=== PATIENT | female | born 1935 | race Caucasian/White ===

== ENCOUNTER 2017-11-18 03:37 | Emergency (ER) | payer MEDICARE, OTHER ==
[~2017-11-18] VITALS: Ht 149.9 cm; Wt 64.4 kg
[2017-11-18 04:58] LABS: Basophils # (auto) 0 uL; Basophils % (auto) 0.1 % (0.0-2.0); Eosinophils # (auto) 0.1 uL; Eosinophils % (auto) 0.8 % (0.0-7.0); Hematocrit 45.1 % (36.0-46.0); Hemoglobin 15.1 g/dL (12.2-16.2); Lymphocytes % (auto) 12.6 % (10.0-50.0); Mean Corpuscular Hemoglobin 29.3 pg (28.0-32.0); Mean Corpuscular Hgb Conc. 33.4 g/dL (32.0-36.0); Mean Corpuscular Volume 87.6 fL (80.0-100.0); Monocytes # (auto) 0.8 uL; Monocytes % (auto) 9.5 % (0.0-12.0); Neutrophils # (auto) 6.3 uL; Nucleated Red Blood Cells % 0.2 %; Platelet Count (auto) 274 10^3/uL (140-450); Red Blood Cells 5.15 10^6/uL (4.0-5.20); Red Cell Distribution Width 14.3 % (11.8-14.3); White Blood Cell 8.2 10^3/uL (4.4-10.8)
[2017-11-18 05:15] LABS: Albumin 3.5 g/dL (3.4-5.0); Calcium 8.4 mg/dL (8.5-10.1); Potassium 3.6 mmol/L (3.5-5.1)
[2017-11-18 05:18] LABS: BUN/Creatinine Ratio 26.1
[2017-11-18 05:21] LABS: Bilirubin, Total 0.5 mg/dL (0.2-1.0); Total Protein 6.7 g/dL (6.4-8.2)
[2017-11-18] MEDS ORDERED: ONDANSETRON HCL 4 MG/2 ML VIAL IV ONE (05:30)
[2017-11-18] MEDS ORDERED: SODIUM CHLORIDE 0.9% 1,000 ML IV ONE (05:30)
[2017-11-18] MEDS ORDERED: LORazepam 2MG/ML-1ML VIAL IV ONE (05:30)
[2017-11-18] MEDS ORDERED: LACTULOSE 20Gm/30ML SOLN PO ONE (05:30)
[2017-11-18 09:35] VITALS: BP 127/99
== END 2017-11-18 09:49 ==
LOC: EDBD 03:37 → ER 03:40
DX: K59.00 Constipation, unspecified (principal); I60.9 Nontraumatic subarachnoid hemorrhage, unspecified; I48.91 Unspecified atrial fibrillation; J44.9 Chronic obstructive pulmonary disease, unspecified; I10 Essential (primary) hypertension; R51 Headache; Z88.0 Allergy status to penicillin
CPT/HCPCS: 36415; 70450; 71045; 72070; 72100; 74176; 80053; 85025; 96361; 96374; 96375; 99291; J2060; J2405; J7030

== ENCOUNTER 2017-11-28 22:07 | Inpatient (IN) | payer OTHER ==
[~2017-11-28] VITALS: Ht 149.9 cm; Wt 69.2 kg
[2017-11-28 23:16] LABS: Basophils # (auto) 0 uL; Basophils % (auto) 0.5 % (0.0-2.0); Eosinophils # (auto) 0.1 uL; Eosinophils % (auto) 1.7 % (0.0-7.0); Hemoglobin 12.8 g/dL (12.2-16.2); Lymphocytes % (auto) 15.4 % (10.0-50.0); Mean Corpuscular Hemoglobin 28.4 pg (28.0-32.0); Mean Corpuscular Hgb Conc. 31.9 g/dL (32.0-36.0); Mean Corpuscular Volume 89.2 fL (80.0-100.0); Monocytes # (auto) 0.7 uL; Monocytes % (auto) 11.3 % (0.0-12.0); Neutrophils # (auto) 4.4 uL; Neutrophils % (auto) 71.1 % (37.0-80.0); Nucleated Red Blood Cells % 0.1 %; Platelet Count (auto) 144 10^3/uL (140-450); Red Blood Cells 4.49 10^6/uL (4.0-5.20); Red Cell Distribution Width 14.7 % (11.8-14.3); White Blood Cell 6.3 10^3/uL (4.4-10.8)
[2017-11-28 23:29] LABS: INR 1.01 (0.9-1.15); Partial Thromboplastin Time 26.6 sec (22.64-33.71)
[2017-11-28 23:35] LABS: Albumin 2.9 g/dL (3.4-5.0); BUN/Creatinine Ratio 22.9; Calcium 8.5 mg/dL (8.5-10.1); Potassium 3.9 mmol/L (3.5-5.1)
[2017-11-28 23:51] LABS: Bilirubin, Total 0.4 mg/dL (0.2-1.0)
[2017-11-29 04:26] LABS: Urine Bacteria FEW /hpf (None Seen); Urine Blood 1+ /uL (Negative); Urine Specific Gravity 1.007 (1.001-1.035); Urine WBC <1 /hpf (0 - 5)
[2017-11-29] MEDS ORDERED: ALBUTEROL SULF 2.5 MG/0.5ML(0.5%) NEB SOLN NEB ONE (08:15)
[2017-11-29] MEDS ORDERED: IPRATROPIUM BROM 0.5 MG/2.5ML INH SOL NEB ONE (08:15)
[2017-11-29] MEDS ORDERED: MORPHINE SULFATE 4 MG/ML SYR/VIAL IV PRN (10:30)
[2017-11-29] MEDS ORDERED: NITROGLYCERIN 0.4 MG SL TAB SL PRN (10:30)
[2017-11-29] MEDS ORDERED: ONDANSETRON HCL 4 MG/2 ML VIAL IV PRN (10:45)
[2017-11-29] MEDS ORDERED: MORPHINE SULF INJ 2 MG/ML SYRINGE 1ML IV PRN (10:45)
[2017-11-29] MEDS ORDERED: PANTOPRAZOLE 40 MG/10 ML VIAL IV ONE (10:45)
[2017-11-29] MEDS ORDERED: CIPROFLOXACIN 400MG/200ML 200 ML IV ONE (10:45)
[2017-11-29] MEDS: SOD CHL 0.45% 1,000 ML IV SCH (11:09)
[2017-11-29] MEDS ORDERED: GOLYTELY 4L KIT PO ONE (15:45)
[2017-11-29] MEDS ORDERED: TIOTCAP IN (17:29)
[2017-11-29] MEDS ORDERED: FLUT500M2 INH (17:29)
[2017-11-29] MEDS ORDERED: ALBUAER3 IN (17:29)
[2017-11-29] MEDS ORDERED: LISI2.5T47 PO (17:29)
[2017-11-29] MEDS ORDERED: CHOL20007 PO (17:29)
[2017-11-29] MEDS ORDERED: CARV12.544 PO (17:29)
[2017-11-29] MEDS ORDERED: BENZ100C97 PO (17:29)
[2017-11-29] MEDS ORDERED: SENN1TAB14 PO (17:29)
[2017-11-29] MEDS ORDERED: MELA3TAB27 PO (17:29)
[2017-11-29] MEDS ORDERED: SIMV-8 PO (17:29)
[2017-11-29] MEDS ORDERED: PANT40TA2 PO (17:29)
[2017-11-29] MEDS ORDERED: DOCU1CAP31 PO (17:29)
[2017-11-29 21:39] VITALS: BP 128/78
[2017-11-29] MEDS: PANTOPRAZOLE 40 MG/10 ML VIAL IV SCH (22:17)
[2017-11-29] MEDS: CIPROFLOXACIN 400MG/200ML 200 ML IV SCH (22:18)
[2017-11-30] VITALS (7 sets, daily range): BP systolic 117–123; BP diastolic 56–76
[2017-11-30] MEDS: SOD CHL 0.45% 1,000 ML IV SCH ×2 (00:05→09:07)
[2017-11-30 07:03] LABS: Basophils # (auto) 0 uL; Basophils % (auto) 0.6 % (0.0-2.0); Eosinophils # (auto) 0.1 uL; Eosinophils % (auto) 1.6 % (0.0-7.0); Hematocrit 40.4 % (36.0-46.0); Hemoglobin 13.2 g/dL (12.2-16.2); Lymphocytes # (auto) 0.8 uL; Lymphocytes % (auto) 13.1 % (10.0-50.0); Mean Corpuscular Hgb Conc. 32.7 g/dL (32.0-36.0); Mean Corpuscular Volume 88.6 fL (80.0-100.0); Monocytes # (auto) 0.8 uL; Monocytes % (auto) 13.3 % (0.0-12.0); Neutrophils # (auto) 4.1 uL; Neutrophils % (auto) 71.4 % (37.0-80.0); Nucleated Red Blood Cells % 0.1 %; Platelet Count (auto) 147 10^3/uL (140-450); Red Blood Cells 4.56 10^6/uL (4.0-5.20); Red Cell Distribution Width 14.6 % (11.8-14.3); White Blood Cell 5.7 10^3/uL (4.4-10.8)
[2017-11-30 07:28] LABS: Albumin 2.9 g/dL (3.4-5.0); Bilirubin, Total 0.6 mg/dL (0.2-1.0); Calcium 7.9 mg/dL (8.5-10.1); Total Protein 6.2 g/dL (6.4-8.2)
[2017-11-30] MEDS ORDERED: MIDAZOLAM HCL 5 MG/ML-1ML VIAL ONE (08:26)
[2017-11-30] MEDS ORDERED: diphenhdrAMINE HCL 50 MG/1 ML VL ONE (08:27)
[2017-11-30] MEDS ORDERED: fentaNYL CITRATE 100 MCG/2 ML VL ONE (08:27)
[2017-11-30] MEDS: PANTOPRAZOLE 40 MG/10 ML VIAL IV SCH ×2 (09:06→22:37)
[2017-11-30] MEDS: CIPROFLOXACIN 400MG/200ML 200 ML IV SCH ×2 (09:07→22:37)
[2017-11-30] MEDS ORDERED: CARVEDILOL 3.125 MG TAB PO ONE (15:15)
[2017-11-30] MEDS ORDERED: FUROSEMIDE 20 MG/2 ML VIAL IV ONE (15:15)
[2017-11-30] MEDS: CARVEDILOL 3.125 MG TAB PO SCH (22:38)
[2017-12-01] MEDS: SOD CHL 0.45% 1,000 ML IV SCH (02:45)
[2017-12-01 05:00] VITALS: BP 120/80
[2017-12-01 06:15] LABS: Basophils # (auto) 0 uL; Basophils % (auto) 0.2 % (0.0-2.0); Eosinophils # (auto) 0.1 uL; Eosinophils % (auto) 2.1 % (0.0-7.0); Hematocrit 39.1 % (36.0-46.0); Hemoglobin 12.7 g/dL (12.2-16.2); Lymphocytes # (auto) 0.6 uL; Lymphocytes % (auto) 10.6 % (10.0-50.0); Mean Corpuscular Hemoglobin 28.8 pg (28.0-32.0); Mean Corpuscular Hgb Conc. 32.6 g/dL (32.0-36.0); Mean Corpuscular Volume 88.3 fL (80.0-100.0); Monocytes # (auto) 0.7 uL; Monocytes % (auto) 12.6 % (0.0-12.0); Neutrophils # (auto) 4.2 uL; Neutrophils % (auto) 74.5 % (37.0-80.0); Nucleated Red Blood Cells % 0.1 %; Platelet Count (auto) 134 10^3/uL (140-450); Red Blood Cells 4.42 10^6/uL (4.0-5.20); Red Cell Distribution Width 14.5 % (11.8-14.3); White Blood Cell 5.6 10^3/uL (4.4-10.8)
[2017-12-01 06:55] LABS: Albumin 2.7 g/dL (3.4-5.0); BUN/Creatinine Ratio 14.8; Bilirubin, Total 0.4 mg/dL (0.2-1.0); Calcium 7.8 mg/dL (8.5-10.1); Potassium 4.2 mmol/L (3.5-5.1); Total Protein 5.9 g/dL (6.4-8.2)
[2017-12-01 08:00] VITALS: BP 124/69
[2017-12-01] MEDS: CARVEDILOL 3.125 MG TAB PO SCH (08:57)
[2017-12-01 09:00] VITALS: BP 124/69
[2017-12-01] MEDS: CIPROFLOXACIN 400MG/200ML 200 ML IV SCH (09:42)
[2017-12-01] MEDS: PANTOPRAZOLE 40 MG/10 ML VIAL IV SCH (09:45)
[2017-12-01] MEDS ORDERED: DIGOXIN 0.125 MG TAB PO SCH (10:00)
[2017-12-01] MEDS ORDERED: FUROSEMIDE 20 MG/2 ML VIAL IV SCH (10:00)
[2017-12-01] MEDS ORDERED: SALINE 0.65 % NASAL SPRAY 45ML BOTTLE EACHNOSTRI SCH (12:00)
[2017-12-01 12:14] VITALS: BP 124/69
[2017-12-01 13:00] VITALS: BP_SYST 107; BP_SYST 134; BP_DIAS 68; BP_DIAS 72
[2017-12-01 15:10] VITALS: BP 107/68
[2017-12-01] MEDS ORDERED: CARVEDILOL 3.125 MG TAB PO SCH (22:00)
== END 2017-12-01 15:10 | disposition home or self-care (01) | DRG 280 ==
LOC: EDBD 22:07 → ER 22:09 → TELE 22:10 → TELE-EAST 11-29 15:44
PROVIDERS: ADMIT Internal Medicine; ATTEND Internal Medicine
PROC: 0DJD8ZZ Inspection of Lower Intestinal Tract, Via Natural or Artificial Opening Endoscopic (ICD-10-PCS; principal; 2017-11-30 12:39)
DX: I21.4 Non-ST elevation (NSTEMI) myocardial infarction (principal); I60.9 Nontraumatic subarachnoid hemorrhage, unspecified; I50.43 Acute on chronic combined systolic (congestive) and diastolic (congestive) heart failure; I27.20 Pulmonary hypertension, unspecified; E66.01 Morbid (severe) obesity due to excess calories; I08.1 Rheumatic disorders of both mitral and tricuspid valves; N39.0 Urinary tract infection, site not specified; K62.5 Hemorrhage of anus and rectum; K64.4 Residual hemorrhoidal skin tags; J44.9 Chronic obstructive pulmonary disease, unspecified; I48.91 Unspecified atrial fibrillation; E78.5 Hyperlipidemia, unspecified; F17.200 Nicotine dependence, unspecified, uncomplicated; K57.30 Diverticulosis of large intestine without perforation or abscess without bleeding; I11.0 Hypertensive heart disease with heart failure; I25.10 Atherosclerotic heart disease of native coronary artery without angina pectoris; Z79.51 Long term (current) use of inhaled steroids; Z86.73 Personal history of transient ischemic attack (TIA), and cerebral infarction without residual deficits; Z68.30 Body mass index [BMI] 30.0-30.9, adult
CPT/HCPCS: 36415; 45378; 70450; 71045; 74176; 80053; 81001; 82270; 83880; 84484; 85025; 85610; 85730; 87081; 93005; 93306; 94640; 96374; 96375; C9113; J2250; J2405

== ENCOUNTER 2017-12-27 18:52 | Observation (INO) | payer OTHER ==
[~2017-12-27] VITALS: Ht 154.9 cm; Wt 65.8 kg
[~2017-12-27 18:52] MED LIST: ALBUAER3 IN; BENZ100C97 PO; CARV12.544 PO; CHOL20007 PO; DOCU1CAP31 PO; FLUT500M2 INH; MELA3TAB27 PO; PANT40TA2 PO; SENN1TAB14 PO; SIMV-8 PO; TIOTCAP IN
[2017-12-27 20:24] LABS: Basophils # (auto) 0 uL; Basophils % (auto) 0.4 % (0.0-2.0); Eosinophils # (auto) 0.3 uL; Eosinophils % (auto) 3.9 % (0.0-7.0); Hematocrit 39.1 % (36.0-46.0); Hemoglobin 12.9 g/dL (12.2-16.2); Lymphocytes % (auto) 12.7 % (10.0-50.0); Mean Corpuscular Hemoglobin 28.6 pg (28.0-32.0); Mean Corpuscular Hgb Conc. 32.9 g/dL (32.0-36.0); Mean Corpuscular Volume 87.1 fL (80.0-100.0); Monocytes # (auto) 0.8 uL; Monocytes % (auto) 9.7 % (0.0-12.0); Neutrophils # (auto) 5.7 uL; Neutrophils % (auto) 73.3 % (37.0-80.0); Nucleated Red Blood Cells % 0.1 %; Platelet Count (auto) 158 10^3/uL (140-450); Red Blood Cells 4.49 10^6/uL (4.0-5.20); White Blood Cell 7.8 10^3/uL (4.4-10.8)
[2017-12-27] MEDS ORDERED: MORPHINE SULFATE 8mg/ml INJ SDV IV ONE (20:30)
[2017-12-27] MEDS ORDERED: ASPirin 81 mg TAB PO ONE (20:30)
[2017-12-27] MEDS ORDERED: ONDANSETRON HCL 4 MG/2 ML VIAL IV ONE (20:30)
[2017-12-27 20:43] LABS: Anion Gap 6 (5-15); Blood Urea Nitrogen 15 mg/dL (7-18); Carbon Dioxide 32 mmol/L (21-32); Chloride 102 mmol/L (98-107); Glucose 93 mg/dL (74-106); Potassium 3.6 mmol/L (3.5-5.1); Sodium 140 mmol/L (136-145)
[2017-12-27 20:44] LABS: Alanine Aminotransferase 21 U/L (13-56); Albumin 3.5 g/dL (3.4-5.0); Alkaline Phosphatase 100 U/L (45-117); Aspartate Aminotransferase 15 U/L (15-37); Bilirubin, Total 0.5 mg/dL (0.2-1.0); Calcium 8.7 mg/dL (8.5-10.1); GFR African American 95 mL/min; GFR Non-African American 79 mL/min; Magnesium 2.6 mg/dL (1.6-2.6); Total Protein 7.2 g/dL (6.4-8.2)
[2017-12-27 20:47] LABS: INR 1.04 (0.9-1.15); Partial Thromboplastin Time 27.5 sec (22.64-33.71); Prothrombin Time 11.3 sec (9.37-12.3)
[2017-12-27] MEDS ORDERED: IOHEXOL 350 MG/ML 100ML IJ ONE (21:57)
[2017-12-27 23:29] VITALS: BP 105/53
== END 2017-12-27 23:07 | disposition home or self-care (01) | DRG 179 ==
LOC: EDBD 18:52 → ER 18:54 → OVERFLOW 19:50 → ER 23:07
PROVIDERS: ADMIT Emergency Medicine; ATTEND Emergency Medicine
DX: J86.9 Pyothorax without fistula (principal); I11.0 Hypertensive heart disease with heart failure; I48.91 Unspecified atrial fibrillation; I50.9 Heart failure, unspecified; R07.89 Other chest pain; I25.10 Atherosclerotic heart disease of native coronary artery without angina pectoris; J44.9 Chronic obstructive pulmonary disease, unspecified; E78.5 Hyperlipidemia, unspecified; F17.210 Nicotine dependence, cigarettes, uncomplicated; Z99.81 Dependence on supplemental oxygen
CPT/HCPCS: 36415; 71045; 71275; 80053; 83735; 83880; 84484; 85025; 85379; 85610; 85730; 96374; 96375; 99285; G0378; J2270; J2405; Q9967; 93005

== ENCOUNTER 2017-12-28 15:41 | Emergency (ER) | payer OTHER ==
[~2017-12-28] VITALS: Ht 157.5 cm; Wt 54.4 kg
[2017-12-28 18:12] VITALS: BP 119/68
== END 2017-12-28 18:49 | disposition home or self-care (01) ==
LOC: ER 15:41 → EDBD 15:41 → ER 18:49
DX: R06.02 Shortness of breath (principal); I11.0 Hypertensive heart disease with heart failure; I50.9 Heart failure, unspecified; I48.91 Unspecified atrial fibrillation; J44.9 Chronic obstructive pulmonary disease, unspecified; E78.5 Hyperlipidemia, unspecified; Z87.891 Personal history of nicotine dependence; Z99.81 Dependence on supplemental oxygen
CPT/HCPCS: 71045; 93005

== ENCOUNTER 2017-12-29 21:00 | Emergency (ER) | payer OTHER ==
[~2017-12-29] VITALS: Ht 165.1 cm; Wt 65.8 kg
[2017-12-29 22:24] LABS: Basophils # (auto) 0 uL; Basophils % (auto) 0.4 % (0.0-2.0); Eosinophils # (auto) 0.3 uL; Eosinophils % (auto) 3.4 % (0.0-7.0); Lymphocytes # (auto) 1.2 uL; Lymphocytes % (auto) 15.4 % (10.0-50.0); Mean Corpuscular Hemoglobin 28.3 pg (28.0-32.0); Mean Corpuscular Hgb Conc. 32.4 g/dL (32.0-36.0); Mean Corpuscular Volume 87.4 fL (80.0-100.0); Monocytes % (auto) 12.2 % (0.0-12.0); Neutrophils # (auto) 5.5 uL; Neutrophils % (auto) 68.6 % (37.0-80.0); Nucleated Red Blood Cells % 0.1 %; Platelet Count (auto) 151 10^3/uL (140-450); Red Blood Cells 4.23 10^6/uL (4.0-5.20); Red Cell Distribution Width 15.4 % (11.8-14.3); White Blood Cell 8.1 10^3/uL (4.4-10.8)
[2017-12-29 22:48] LABS: Alanine Aminotransferase 22 U/L (13-56); Albumin 3.2 g/dL (3.4-5.0); Alkaline Phosphatase 90 U/L (45-117); Anion Gap 6 (5-15); Aspartate Aminotransferase 16 U/L (15-37); Bilirubin, Total 0.5 mg/dL (0.2-1.0); Blood Urea Nitrogen 16 mg/dL (7-18); Calcium 8.5 mg/dL (8.5-10.1); Carbon Dioxide 32 mmol/L (21-32); Chloride 103 mmol/L (98-107); GFR African American 84 mL/min; GFR Non-African American 69 mL/min; Glucose 84 mg/dL (74-106); Magnesium 2.5 mg/dL (1.6-2.6); Potassium 3.7 mmol/L (3.5-5.1); Sodium 141 mmol/L (136-145); Total Protein 6.9 g/dL (6.4-8.2)
[2017-12-29 23:23] LABS: Urine Amorphous Crystal FEW /hpf (None Seen); Urine Bacteria FEW /hpf (None Seen); Urine Blood 1+ /uL (Negative); Urine Hyaline Cast MOD /lpf (0 - 2); Urine Mucus FEW (None Seen); Urine Specific Gravity 1.015 (1.001-1.035); Urine WBC 996 /hpf (0 - 5); Urine WBC Clumps PRESENT /hpf (None Seen)
[2017-12-30] MEDS ORDERED: methylPREDNISolone SOD SUCC 125 MG/2 ML VL IV ONE
[2017-12-30 03:50] VITALS: BP 126/46
== END 2017-12-30 03:30 | disposition home or self-care (01) ==
LOC: ER 21:00 → EDBD 21:00 → ER 12-30 03:30
DX: J45.901 Unspecified asthma with (acute) exacerbation (principal); N39.0 Urinary tract infection, site not specified; I11.0 Hypertensive heart disease with heart failure; I50.9 Heart failure, unspecified; I48.91 Unspecified atrial fibrillation; E78.00 Pure hypercholesterolemia, unspecified; Z87.891 Personal history of nicotine dependence
CPT/HCPCS: 36415; 71045; 80053; 81001; 83735; 83880; 84484; 85025; 93005; 96374

== ENCOUNTER 2018-02-01 21:10 | Emergency (ER) | payer OTHER ==
[~2018-02-01] VITALS: Ht 157.5 cm; Wt 49.9 kg
[2018-02-01 22:02] LABS: Basophils # (auto) 0 uL; Basophils % (auto) 0.3 % (0.0-2.0); Eosinophils # (auto) 0.2 uL; Eosinophils % (auto) 1.6 % (0.0-7.0); Hematocrit 39.7 % (36.0-46.0); Hemoglobin 13.1 g/dL (12.2-16.2); Lymphocytes # (auto) 1.3 uL; Lymphocytes % (auto) 12.4 % (10.0-50.0); Mean Corpuscular Hemoglobin 28.4 pg (28.0-32.0); Monocytes # (auto) 0.9 uL; Monocytes % (auto) 8.9 % (0.0-12.0); Neutrophils # (auto) 7.9 uL; Neutrophils % (auto) 76.8 % (37.0-80.0); Nucleated Red Blood Cells % 0.1 %; Platelet Count (auto) 178 10^3/uL (140-450); Red Blood Cells 4.62 10^6/uL (4.0-5.20); Red Cell Distribution Width 16.1 % (11.8-14.3); White Blood Cell 10.3 10^3/uL (4.4-10.8)
[2018-02-01 22:21] LABS: Alanine Aminotransferase 22 U/L (13-56); Albumin 3.1 g/dL (3.4-5.0); Amylase 39 U/L (25-115); Anion Gap 10 (5-15); Aspartate Aminotransferase 11 U/L (15-37); BUN/Creatinine Ratio 42.1; Blood Urea Nitrogen 32 mg/dL (7-18); Carbon Dioxide 31 mmol/L (21-32); Chloride 100 mmol/L (98-107); GFR African American 94 mL/min; GFR Non-African American 78 mL/min; Glucose 105 mg/dL (74-106); Lipase 124 U/L (73-393); Magnesium 2.1 mg/dL (1.6-2.6); Potassium 3.8 mmol/L (3.5-5.1); Sodium 141 mmol/L (136-145)
[2018-02-01 22:26] LABS: Alkaline Phosphatase 91 U/L (45-117); Bilirubin, Total 0.5 mg/dL (0.2-1.0); Total Protein 7.3 g/dL (6.4-8.2)
[2018-02-01 22:53] LABS: Urine Bacteria NONE SEEN /hpf (None Seen); Urine Blood Negative /uL (Negative); Urine Specific Gravity 1.009 (1.001-1.035); Urine WBC 1 /hpf (0 - 5)
[2018-02-02] MEDS ORDERED: SODIUM CHLORIDE 0.9% 1,000 ML IV ONE (01:15)
[2018-02-02 05:36] VITALS: BP 114/88
== END 2018-02-02 07:02 | disposition home or self-care (01) ==
LOC: EDBD 21:10 → ER 21:16
DX: R10.13 Epigastric pain (principal); N85.8 Other specified noninflammatory disorders of uterus; I11.0 Hypertensive heart disease with heart failure; I50.9 Heart failure, unspecified; I48.91 Unspecified atrial fibrillation; J44.9 Chronic obstructive pulmonary disease, unspecified; K21.9 Gastro-esophageal reflux disease without esophagitis; E78.5 Hyperlipidemia, unspecified; Z88.0 Allergy status to penicillin; Z87.891 Personal history of nicotine dependence
CPT/HCPCS: 36415; 71045; 74176; 76705; 80053; 81001; 82150; 83690; 83735; 84484; 85025; 93005